=== PATIENT | female | born 1955 | race Two or more races ===

== ENCOUNTER 2018-04-25 10:51 | Emergency (ER) | payer OTHER ==
[~2018-04-25] VITALS: Ht 157.5 cm; Wt 63.5 kg
[2018-04-25] MEDS ORDERED: ATENOLOL25 MG PO (11:25)
[2018-04-25] MEDS ORDERED: HIZAAR (11:25)
[2018-04-25] MEDS ORDERED: ZOCOR20 MG PO (11:26)
== END 2018-04-25 14:24 | disposition home or self-care (01) ==
LOC: ER 10:51
DX: S61.234A Puncture wound without foreign body of right ring finger without damage to nail, initial encounter (principal); W26.8XXA Contact with other sharp object(s), not elsewhere classified, initial encounter; Y93.89 Activity, other specified; Y92.89 Other specified places as the place of occurrence of the external cause; Y99.8 Other external cause status

== ENCOUNTER → 2024-05-23 | Day surgery (SDC) | payer OTHER ==
[~2024-05-23] VITALS: Ht 157.5 cm; Wt 68.9 kg
[~2024-05-23] MED LIST: ATENOLOL25 MG PO; ATORVASTATIN CA20 MG PO; HIZAAR; KETOROLAC TROMETHAMINE 30 MG VIAL IV ONE; LOSARTAN-HCTZ1 EAC1 PO; ONDANSETRON HCL 2 MG/ML VIAL IV ONE; ZOCOR20 MG PO
--- NOTE | 2024-05-23 06:16 | NUR ---
PACIENTE ALERTA Y ORIENTADA X3, PACIENTE DE DR. MCCOY. REFIERE SANGRADO VAGINAL Y DOLOR EN AREA PELVICA QUE NO MEJORA. REFIERE QUE TENDRA PROCESO QUIRURGICO DE RASPE CON DR. MCCOY LA SEMANA QUE VIENE. SE ENDY S/V Y SE UBICA.
--- NOTE | 2024-05-23 08:43 | NUR ---
BERTIN RHODES EDUCA ACERCA DE TX ORDENADO Y REFIERE ENTENDER, SE CANALIZA Y COLECTAN MUESTRAS DE LABORATORIO MEDIANTE MEDIDAS ASEPTICAS.
[2024-05-23 08:55] LABS: HEMATOCRIT 42.3 % (36.0-45.00); HEMOGLOBIN 14.5 g/dL (12.0-15.00); MEAN CELL VOLUME 90.4 fL (80.00-100.00); MEAN CORPUSCULAR HGB CONC 34.3 g/dl (32.0-36.0); PLATELET COUNT 277 K/uL (150-450); RED BLOOD COUNT 4.67 M/uL (4.00-6.00); RED CELL DISTRIBUTION WIDTH 13.3 % (11.5-14.5)
[2024-05-23 09:00] LABS: PH,URINE 7.5 (5.0-8.0); URINE APPEARANCE Cloudy; URINE BILIRRUBIN Negative (NEGATIVE); URINE BLOOD Large; URINE COLOR Red; URINE GLUCOSE Negative (NEGATIVE); URINE KETONE Negative (NEGATIVE); URINE LEUKOCYTE Small; URINE NITRATE Negative; URINE PROTEIN Trace (NEGATIVE)
[2024-05-23 09:01] LABS: URINE BACTERIA 181.1 uL (0.0-1933); URINE EPITHELIAL CELLS 14.3 uL (0.0-38.8); URINE RBC 9775.1 uL (0.0-20.8); URINE WBC 29.4 uL (0.0-23.2)
[2024-05-23 09:23] LABS: PARTIAL THROMBOPLASTIN TIME 27.6 SECONDS (22.0-34.0); PROTHROMBIN TIME 10.9 SECONDS (9.0-11.5)
[2024-05-23 09:42] LABS: ALBUMIN 3.8 gm/dL (3.4-5.0); BILIRUBIN TOTAL 0.62 mg/dL (0.3-1.2); CALCIUM 9.6 mg/dL (8.5-10.1); CREATININE SERUM 0.68 mg/dL (0.55-1.02); GFR 85.54; GLOBULINA 4.2 G/DL (2.4-3.5); POTASSIUM 3.89 mEq/L (3.5-5.1)
[2024-05-23 17:16] VITALS: BP 108/57; O2SAT 100
== END | disposition home or self-care (01) ==
LOC: EDSTATUS 06:08 → ER 06:08 → SEC-K 08:43 → ER 08:43 → CIR.AMB 08:43 → SEC-K 09:23 → O/R 09:23
PROVIDERS: ATTEND General Practice
DX: N95.0 Postmenopausal bleeding (principal)

== ENCOUNTER 2024-08-16 13:33 | Emergency (ER) | payer OTHER ==
[~2024-08-16] VITALS: Ht 157.5 cm; Wt 68.0 kg
[~2024-08-16 13:33] MED LIST changes: -KETOROLAC TROMETHAMINE 30 MG VIAL IV ONE; -ONDANSETRON HCL 2 MG/ML VIAL IV ONE
[2024-08-16] MEDS ORDERED: TENORMIN50 M1 PO (14:14)
[2024-08-16] MEDS ORDERED: HYZAAR 100-251 EACH PO (14:14)
[2024-08-16] MEDS ORDERED: DEXAMETHASONE SODIUM PHOSPHATE 4 MG/ML VIAL IM STA (18:17)
[2024-08-16] MEDS ORDERED: ORPHENADRINE CITRATE 30 MG/ML AMPUL IM STA (18:18)
[2024-08-16] MEDS ORDERED: DEXAMETHAS10 MG/1 M1 IM (19:39)
== END 2024-08-16 19:46 | disposition home or self-care (01) ==
LOC: ER 13:36
DX: T78.40XA Allergy, unspecified, initial encounter (principal); Z91.013 Allergy to seafood
CPT/HCPCS: 96372; 99282; J1100; J2360

== ENCOUNTER 2024-08-20 09:54 | Emergency (ER) | payer OTHER ==
[~2024-08-20] VITALS: Ht 157.5 cm; Wt 66.2 kg
[~2024-08-20 09:54] MED LIST changes: +DEXAMETHAS10 MG/1 M1 IM; +HYZAAR 100-251 EACH PO; +TENORMIN50 M1 PO
[2024-08-20] MEDS ORDERED: METHYLPREDNISOLONE SOD SUCC 125 MG VIAL IM STA (10:56)
[2024-08-20] MEDS ORDERED: KETOROLAC TROMETHAMINE 15 MG VIAL IM STA (10:56)
[2024-08-20] MEDS ORDERED: DIPHENHYDRAMINE HCL 50 MG/ML VIAL 1ML IM STA (10:57)
[2024-08-20 11:29] LABS: HEMATOCRIT 41.4 % (36.0-45.00); HEMOGLOBIN 14.2 g/dL (12.0-15.00); MEAN CORPUSCULAR HEMOGLOBIN 30.9 pg (27.00-32.0); MEAN CORPUSCULAR HGB CONC 34.4 g/dl (32.0-36.0); PLATELET COUNT 289 K/uL (150-450); RED CELL DISTRIBUTION WIDTH 12.5 % (11.5-14.5)
[2024-08-20 11:55] LABS: ALBUMIN 2.7 gm/dL (3.4-5.0); BILIRUBIN TOTAL 0.44 mg/dL (0.3-1.2); CALCIUM 9.1 mg/dL (8.5-10.1); CREATININE SERUM 0.8 mg/dL (0.55-1.02); GFR 70.91; GLOBULINA 4.8 G/DL (2.4-3.5); POTASSIUM 3.65 mEq/L (3.5-5.1); TOTAL PROTEIN 7.5 gm/dL (6.4-8.2); URIC ACID 4.3 mg/dL (2.5-7.5)
[2024-08-20] MEDS ORDERED: CEFTRIAXONE SODIUM 1,000 MG VIAL IM STA (13:13)
[2024-08-20] MEDS ORDERED: INTESTINEX680 M1 PO (13:17)
[2024-08-20] MEDS ORDERED: MEDROLPACK PO (13:17)
[2024-08-20] MEDS ORDERED: ATARAX25 MG PO (13:17)
[2024-08-20] MEDS ORDERED: AMOX-CLAV 875-1 EACH PO (13:17)
== END 2024-08-20 13:47 | disposition home or self-care (01) ==
LOC: ER 09:56
PROVIDERS: General Practice
DX: J03.80 Acute tonsillitis due to other specified organisms (principal); T78.40XA Allergy, unspecified, initial encounter; B34.9 Viral infection, unspecified; Z91.013 Allergy to seafood; I10 Essential (primary) hypertension; Z88.8 Allergy status to other drugs, medicaments and biological substances; Z20.822 Contact with and (suspected) exposure to COVID-19
CPT/HCPCS: 36415; 96372; 99282; J0696; J1200; J1885; J3490